=== PATIENT | female | born 1980 | race Hispanic/Latino ===

== ENCOUNTER 2021-11-19 12:27 | Inpatient (IN) | payer OTHER ==
[~2021-11-19] VITALS: Ht 160 cm; Wt 90.7 kg
[2021-11-19] MEDS ORDERED: Morphine 4mg INJECTION 4 MG/ML INJ IV STA (12:50)
[2021-11-19] MEDS ORDERED: SODIUM CHLORIDE 0.9% 1000ML 1,000 ML IV STA ×2 (12:50→14:00)
[2021-11-19] MEDS ORDERED: ONDANSETRON HCL INJ 2MG/ML 2ML 2 MG/ML VIAL IV STA (12:50)
[2021-11-19 13:22] LABS: BASOPHILS % 0.2 % (0.0-1.0); HEMATOCRIT 38.1 % (34.2-44.1); HEMOGLOBIN 13.1 g/dL (12.0-16.0); LYMPHOCYTES # (AUTO) 1.5 (1.0-3.2); LYMPHOCYTES % 7.9 % (18.0-39.1); MEAN CORPUSCULAR HEMOGLOBIN 32.1 pg (28-32); MEAN CORPUSCULAR HGB CONC 34.4 g/dL (31-35); MEAN CORPUSCULAR VOLUME 93.4 fL (81-99); MONOCYTES # (AUTO) 0.3 (0.2-0.8); MONOCYTES % 1.4 % (4.4-11.3); NEUTROPHILS # (AUTO) 16.7 (2.1-6.9); PLATELET COUNT 223 x10e3/uL (140-360); RED BLOOD COUNT 4.08 x10e6/uL (3.6-5.1); RED CELL DISTRIBUTION WIDTH 12.8 % (11.7-14.4)
[2021-11-19 13:41] LABS: INR 1.13; PROTHROMBIN TIME 15.5 seconds (11.9-14.5)
[2021-11-19 13:51] LABS: ALANINE AMINOTRANSFERASE 16 IU/L (0-55); ALBUMIN/GLOBULIN RATIO 0.6 (0.8-2.0); ALKALINE PHOSPHATASE 66 IU/L (40-150); ANION GAP 15.8 mmol/L (8-16); BLOOD UREA NITROGEN 12 mg/dL (7-26); BUN/CREATININE RATIO 12 (6-25); CALCIUM 9.1 mg/dL (8.4-10.2); CARBON DIOXIDE 23 mmol/L (22-29); CHLORIDE 96 mmol/L (98-107); CREATINE KINASE 79 IU/L (29-168); CREATININE, SERUM 0.98 mg/dL (0.57-1.11); GLUCOSE 112 mg/dL (74-118); LIPASE 17 U/L (8-78); MAGNESIUM 2.1 MG/DL (1.3-2.1); SODIUM 132 mmol/L (136-145)
[2021-11-19 13:52] LABS: POTASSIUM 2.8 mmol/L (3.5-5.1)
[2021-11-19 13:59] LABS: CLARITY,URINE CLOUDY (CLEAR); COLOR,URINE YELLOW (YELLOW)
[2021-11-19 14:00] LABS: KETONES,URINE NEGATIVE (NEGATIVE); LEUKOCYTE ESTERASE ,URINE NEGATIVE (NEGATIVE); NITRITE,URINE NEGATIVE (NEGATIVE); PROTEIN,URINE DIPSTICK 2+ (NEGATIVE); URINE UROBILINOGEN 0.2 mg/dL (0.2 - 1)
[2021-11-19] MEDS ORDERED: POTASSIUM CHLORIDE 20MEQ/15ML UDC PO ONE (14:00)
[2021-11-19 14:02] LABS: BACTERIA,URINE FEW /HPF; EPITHELIAL CELLS,URINE FEW /LPF; WBC,URINE (MAN) 0-5 /HPF (0-5)
[2021-11-19] MEDS ORDERED: IOPAMIDOL 370 MG/ML 100 ML INFUS..BTL INJ ONE (14:15)
[2021-11-19] MEDS ORDERED: KCL 20 MEQ PACKET/ ORAL SOLN PO ONE (14:30)
[2021-11-19] MEDS ORDERED: ONDANSETRON HCL INJ 2MG/ML 2ML 2 MG/ML VIAL IV PRN (16:30)
[2021-11-19] MEDS ORDERED: Morphine 4mg INJECTION 4 MG/ML INJ IV PRN (16:30)
[2021-11-19] MEDS ORDERED: METRONIDAZOLE 500MG/NS 100ML IV SCH (16:30)
[2021-11-19] MEDS: SODIUM CHLORIDE 0.9% 1000ML 1,000 ML IV SCH ×2 (16:35→18:12)
[2021-11-19] MEDS ORDERED: METRONIDAZOLE 500MG/NS 100ML 100 ML IV SCH (17:00)
[2021-11-19] MEDS: METRONIDAZOLE 500MG/NS 100ML 100 ML IV SCH (18:10)
[2021-11-19] MEDS: HYDROMORPHONE 1MG/1ML INJ IV PRN ×3 (19:23→22:57)
[2021-11-19 19:57] VITALS: BP 112/73
[2021-11-19 20:33] VITALS: BP 112/73
[2021-11-20] VITALS (8 sets, daily range): BP systolic 106–113; BP diastolic 63–79
[2021-11-20] MEDS: SODIUM CHLORIDE 0.9% 1000ML 1,000 ML IV SCH ×2 (00:23→08:28)
[2021-11-20] MEDS: METRONIDAZOLE 500MG/NS 100ML 100 ML IV SCH ×3 (00:23→16:42)
[2021-11-20] MEDS ORDERED: PROPRANOLOL HCL10 MG PO (03:22)
[2021-11-20] MEDS ORDERED: DOXEPIN HCL25 MG PO (03:22)
[2021-11-20] MEDS ORDERED: VYVANSE40 MG PO (03:22)
[2021-11-20 06:49] LABS: BASOPHILS % 0.1 % (0.0-1.0); EOSINOPHILS % 0.2 % (0.0-6.0); HEMATOCRIT 30.3 % (34.2-44.1); HEMOGLOBIN 10.2 g/dL (12.0-16.0); LYMPHOCYTES # (AUTO) 1.2 (1.0-3.2); LYMPHOCYTES % 12.3 % (18.0-39.1); MEAN CORPUSCULAR HEMOGLOBIN 32.1 pg (28-32); MEAN CORPUSCULAR HGB CONC 33.7 g/dL (31-35); MEAN CORPUSCULAR VOLUME 95.3 fL (81-99); MONOCYTES # (AUTO) 0.5 (0.2-0.8); MONOCYTES % 4.9 % (4.4-11.3); PLATELET COUNT 162 x10e3/uL (140-360); RED BLOOD COUNT 3.18 x10e6/uL (3.6-5.1); RED CELL DISTRIBUTION WIDTH 12.8 % (11.7-14.4)
[2021-11-20 07:26] LABS: ALBUMIN 2.3 g/dL (3.5-5.0); ALBUMIN/GLOBULIN RATIO 0.6 (0.8-2.0); ANION GAP 13.1 mmol/L (8-16); CREATININE, SERUM 0.76 mg/dL (0.57-1.11); POTASSIUM 3.1 mmol/L (3.5-5.1)
[2021-11-20] MEDS: HYDROCODONE/APAP 5MG-325MG TAB PO PRN ×3 (08:29→18:45)
[2021-11-20] MEDS ORDERED: MAGNESIUM/ALUMINUM/SIMETHICONE 30 ML UDC PO PRN (13:45)
[2021-11-20] MEDS ORDERED: ONDANSETRON HCL INJ 2MG/ML 2ML 2 MG/ML VIAL IV PRN (13:45)
[2021-11-20] MEDS ORDERED: ACETAMINOPHEN 325 MG TAB PO PRN (13:45)
[2021-11-20] MEDS ORDERED: MELATONIN 3 MG TAB PO PRN (13:45)
[2021-11-20] MEDS ORDERED: HYDRALAZINE HCL 20 MG/ML VIAL IV PRN (13:45)
[2021-11-20] MEDS ORDERED: POTASSIUM CHLORIDE 20 MEQ TAB CR PO ONE (14:30)
[2021-11-20] MEDS ORDERED: AUGMENTIN 500-1 EACH PO (19:58)
[2021-11-20] MEDS ORDERED: DOXEPIN HCL 25 MG CAP PO SCH (21:00)
[2021-11-20] MEDS ORDERED: DOXEPIN 6 MG PO SCH (21:00)
[2021-11-21 00:19] VITALS: BP 107/69
[2021-11-21] MEDS: SODIUM CHLORIDE 0.9% 1000ML 1,000 ML IV SCH ×2 (00:20→08:09)
[2021-11-21] MEDS: METRONIDAZOLE 500MG/NS 100ML 100 ML IV SCH ×2 (00:47→08:08)
[2021-11-21] MEDS: HYDROCODONE/APAP 5MG-325MG TAB PO PRN ×2 (03:25→09:32)
[2021-11-21 04:00] VITALS: BP 98/67
[2021-11-21 06:28] LABS: ANION GAP 13.2 mmol/L (8-16); CALCIUM 7.8 mg/dL (8.4-10.2); CREATININE, SERUM 0.68 mg/dL (0.57-1.11); POTASSIUM 3.2 mmol/L (3.5-5.1)
[2021-11-21 07:55] VITALS: BP 98/67
[2021-11-21 07:58] VITALS: BP 120/77
[2021-11-21] MEDS ORDERED: PROPRANOLOL HCL 10 MG TAB PO SCH (09:00)
[2021-11-21] MEDS ORDERED: MULTIVITAMINS/MINERALS TAB PO SCH (09:00)
[2021-11-21] MEDS ORDERED: TYLENOL325 MG PO (11:36)
[2021-11-21] MEDS ORDERED: DICYCLOMINE HCL20 MG PO (11:36)
[2021-11-21] MEDS ORDERED: POTASSIUM CHLORIDE 20 MEQ TAB CR PO ONE (11:45)
[2021-11-21 12:03] VITALS: BP 101/70
[2021-11-21] MEDS ORDERED: METRONIDAZOLE 500 MG TAB PO SCH (17:00)
== END 2021-11-21 13:43 | disposition home or self-care (01) | DRG 392 ==
LOC: ER 13:37 → ERHOLD 16:24 → MED/SURG2 19:56
PROVIDERS: ADMIT Internal Medicine; ATTEND Internal Medicine
DX: K52.9 Noninfective gastroenteritis and colitis, unspecified (principal); E87.1 Hypo-osmolality and hyponatremia; D72.829 Elevated white blood cell count, unspecified; G47.00 Insomnia, unspecified; E66.9 Obesity, unspecified; E87.6 Hypokalemia; F90.9 Attention-deficit hyperactivity disorder, unspecified type; E87.8 Other disorders of electrolyte and fluid balance, not elsewhere classified; Z72.89 Other problems related to lifestyle; Z63.4 Disappearance and death of family member; Z68.35 Body mass index [BMI] 35.0-35.9, adult; Z83.3 Family history of diabetes mellitus; Z20.822 Contact with and (suspected) exposure to COVID-19
CPT/HCPCS: 36415; 71045; 74177; 80048; 80053; 81001; 82550; 82553; 83605; 83690; 83735; 84484; 84702; 85025; 85610; 85730; 87040; 87086; 93005; 99284; J0692; J1170; J2270; J2405; J2543; J7030; Q9967